=== PATIENT | female | born 1975 | race Caucasian/White ===

== ENCOUNTER 2017-03-12 09:15 | Emergency (ER) | payer OTHER ==
[~2017-03-12] VITALS: Ht 160 cm; Wt 46.0 kg
[~2017-03-12 09:15] MED LIST: CLONAZEPAM1 MG PO; DEPAKOTE500 MG PO; ELAVIL10 MG PO; LEXAPRO20 MG PO
[2017-03-12 10:23] LABS: EOSINOPHIL (%) 0.3 % (0-5); IMMATURE GRANULOCYTE (%) 0.4 % (0.0-0.7); INSTRUMENT ABS NEUTROPHIL CT 7.2 K/uL; LYMPHOCYTE COUNT 2.7 K/uL (1.0-2.8); MCH 32.3 PG (29.0-34.0); MCHC 33.1 G/DL (30.0-36.0); MCV 97.5 FL (83-99); MEAN PLAT.VOLUME 9.6 uM^3 (9.5-12.4); MONOCYTE (%) 10.1 % (3-12); MONOCYTE COUNT 1.1 K/uL (0-0.8); NEUTROPHIL (%) 64.6 % (45-76); NEUTROPHIL COUNT 7.2 K/uL (1.8-6.4); PLATELET COUNT 299 K/uL (156-360); RBC DIS.WIDTH-CV 13.7 % (11.8-14.6); RBC DIS.WIDTH-SD 48.8 % (39-53); RED BLOOD COUNT 3.59 M/uL (3.80-5.20); WHITE BLOOD COUNT 11.1 K/uL (4.1-10.2)
[2017-03-12 10:29] LABS: ADD MIUA? YES; BILIRUBIN NEGATIVE; BLOOD SMALL; COLOR YELLOW ((YELLOW)); GLUCOSE (STRIP) NEGATIVE; KETONES 5; LEUKOCYTES NEGATIVE; NITRITE NEGATIVE; PROTEIN (STRIP) 100; SPECIFIC GRAVITY 1.014 (1.000-1.030); UROBILINOGEN 0.2 MG/DL (0.2-1.0)
[2017-03-12 10:39] LABS: BACTERIA RARE /HPF; EPITHELIAL CELLS RARE /HPF; HYALINE CASTS 15-20 /LPF; MUCUS TRACE /LPF; UCUL ADDED? NO; WHITE BLOOD CELLS 0-5 /HPF (0-5)
[2017-03-12 10:40] LABS: COCAINE NEGATIVE (150 ng/mL); METHAMPHETAMINE NEGATIVE (500 ng/mL); PHENCYCLIDINE NEGATIVE (25 ng/mL); THC CANNABINOIDS NEGATIVE (50 ng/mL)
[2017-03-12 10:41] LABS: ADD MEDTOX COMMENT Y; AMPHETAMINE NEGATIVE (500 ng/mL); BARBITURATES PRESUMPTIVE POSITIVE (200 ng/mL); BENZODIAZEPINES PRESUMPTIVE POSITIVE (150 ng/mL); INTERNAL CONTROLS VALID? YES; METHADONE NEGATIVE (200 ng/mL); OPIATES (MORPHINE) PRESUMPTIVE POSITIVE (100 ng/mL); OXYCODONE NEGATIVE (100 ng/mL); PROPOXYPHENE NEGATIVE (300 ng/mL); TRICYCLIC ANTIDEPRESSANTS PRESUMPTIVE POSITIVE (300 ng/mL)
[2017-03-12 10:49] LABS: CHLORIDE 104 mEq/L (99-109); POTASSIUM 2.7 mEq/L (3.7-5.4); SODIUM 138 mEq/L (136-147)
[2017-03-12 10:52] LABS: GLUCOSE 103 mg/dL (70-99)
[2017-03-12 10:53] LABS: ANION GAP 13 MEQ/L (2-14)
[2017-03-12 10:54] LABS: TOTAL BILIRUBIN 0.2 mg/dL (0.0-1.0)
[2017-03-12 10:55] LABS: ALKALINE PHOSPHATASE 74 IU/L (3-129); GFR ESTIMATE (CALCULATED) > 59 mL/min/
[2017-03-12 10:56] LABS: UREA NITROGEN (BUN) 7 mg/dL (9-23)
[2017-03-12 11:04] LABS: QUANTITATIVE HCG < 4.0 MIU/ML
[2017-03-12 11:14] LABS: BENZODIAZEPINES QUANT VALUE 0 NG/ML; BENZODIAZEPINES, URINE SCREEN Negative (200 ng/mL); OPIATES QUANTITATIVE VALUE 0 NG/ML
[2017-03-12 11:32] LABS: SAMPLE HEMOLYSIS CHECK 0; SAMPLE ICTERIC CHECK 0; SAMPLE LIPEMIA CHECK 0
[2017-03-12] MEDS ORDERED: DEPAKOTE500 MG PO (12:26)
[2017-03-12 12:41] VITALS: BP 123/69
== END 2017-03-12 12:44 | disposition home or self-care (01) ==
LOC: EME 09:15
PROVIDERS: Physician Assistant
DX: R56.9 Unspecified convulsions (principal); E87.6 Hypokalemia; F17.200 Nicotine dependence, unspecified, uncomplicated
CPT/HCPCS: 70450; 80053; 80164; 81003; 83735; 84702; 84999; 85025; 99281; 99285